=== PATIENT | male | born 1945 | race Caucasian/White ===

== ENCOUNTER 2016-09-20 11:07 | Inpatient (IN) | payer MEDICARE, OTHER ==
[~2016-09-20] VITALS: Ht 170.2 cm; Wt 161.5 kg
[2016-09-20] VITALS (8 sets, daily range): BP systolic 127–169; BP diastolic 65–87; PULSE 68–92; RESP 19–21; TEMP 96.3–97.7; O2SAT 94–99
[~2016-09-20 11:07] MED LIST: ALLO300T2 PO; ASPI81CH3; BUPR100CR PO; CENTTAB; CHLO50TA PO; CHOL1CAP6; CRAN500C2; DIAZ10 PO; FENT100D T-DERMAL; FISH100020 PO; FURO1TAB60 PO; LOMO5S PO; METO50CR PO; MOBI15TA PO; MSIR15 PO; NEUR800T PO; OXYC1TAB35 PO; SERT-129 PO; TAMS0.4C4; TROS20TA PO
[2016-09-20] MEDS ORDERED: SODIUM CHLOR 0.9% 1000 ML INJ 1,000 ML IV SCH (11:23)
[2016-09-20 11:36] LABS: AUTOMATED NEUTROPHIL # 4.8 TH/MM3 (1.8-7.7); BASOPHIL % 0.5 % (0.0-2.0); EOSINOPHIL # 0.1 TH/MM3 (0-0.4); HEMATOCRIT 41.8 % (39.0-51.0); HEMO FLAGS DIFF FINAL; LYMPH % 15.6 % (9.0-44.0); MEAN CORPUSCULAR HEMOGLOBIN 30.6 PG (27.0-34.0); MEAN CORPUSCULAR HGB CONC 34.4 % (32.0-36.0); MONO % 9.9 % (0.0-8.0); PLATELET COUNT 214 TH/MM3 (150-450); RED CELL DISTRIBUTION WIDTH 14.5 % (11.6-17.2); WHITE BLOOD COUNT 6.6 TH/MM3 (4.0-11.0)
[2016-09-20] MEDS ORDERED: VITA10003 PO (11:36)
[2016-09-20] MEDS ORDERED: CHLO25TA2 PO (11:36)
[2016-09-20] MEDS ORDERED: SERT-129 PO (11:36)
[2016-09-20] MEDS ORDERED: MORP1TAB26 PO (11:36)
[2016-09-20] MEDS ORDERED: METO25TA6 PO (11:36)
[2016-09-20] MEDS ORDERED: MIRA50TA PO (11:36)
[2016-09-20] MEDS ORDERED: TAMS0.4C4 PO (11:36)
[2016-09-20] MEDS ORDERED: FISH1000 (11:36)
[2016-09-20] MEDS ORDERED: BUPR100T4 PO (11:36)
[2016-09-20] MEDS ORDERED: MULT-125 PO (11:36)
[2016-09-20] MEDS ORDERED: LOMO2.5T PO (11:36)
[2016-09-20] MEDS ORDERED: GABA300C5 PO (11:36)
[2016-09-20] MEDS ORDERED: HYDR-3580 PO (11:36)
[2016-09-20] MEDS ORDERED: ASPI1TAB69 PO (11:36)
[2016-09-20] MEDS ORDERED: CRAN500C2 (11:36)
[2016-09-20] MEDS ORDERED: DIAZ5TAB PO (11:36)
[2016-09-20] MEDS ORDERED: ALLO300T2 PO (11:36)
--- NOTE | 2016-09-20 11:40 | PD ---
HPI Chief Complaint: General Weakness Time Seen by Provider: 11:34 Travel History International Travel<30 days: No Contact w/Intl Traveler<30days: No Traveled to known affect area: No History of Present Illness HPI 70-year-old male that presents to the ED for evaluation of generalized weakness and loss of bowel movement as well as bladder control the past 2 days. The patient has a history of prostate cancer many years ago as well as a history of a pinched nerve which causes pain to both legs. Per patient he is usually able to ambulate. Per patient for the past 2 days he has not been able to because he has weakness on both legs. He states that he lost his bowel movement and urine control about 2 days ago and he just goes without even knowing. Per patient he stools have been liquidy and black. He denies any chest pain or shortness of breath. He denies taking any blood thinners. He states that overall he feels dehydrated and weak. He denies any sick contacts. He denies ever having anything like this before. In any back injuries recently. No recent falls. Patient does complain of bilateral leg pain that again he attributes to his "pinched nerve". Denies any blood in the stool. States having some chills but no fevers. No abdominal pain. No chest pain or shortness of breath. Allergy to contrast media and Neosporin. PFSH Past Medical History Cancer: Yes (PROSTATE, LYMPHOMA) Diminished Hearing: No Genitourinary: Yes (CHRONIC UTI'S) Kidney Stones: Yes Radiation Therapy: Yes (2007) Tetanus Vaccination: < 5 Years ?: Not Past Surgical History Other Surgery: Yes (hernia repair, vein ligations) Social History Alcohol Use: No Tobacco Use: No Substance Use: No Allergies-Medications (Allergen,Severity, Reaction): Coded Allergies: Contrast Media (Verified Allergy, Severe, 09/20/16) Renal failure Neosporin (Verified Allergy, Unknown, rash, 09/20/16) Reported Meds & Prescriptions Reported Meds & Active Scripts Active Reported Metoprolol Succinate ER 24 HR (Metoprolol Succinate) 25 Mg Tab 25 Mg PO DAILY Diazepam 5 Mg Tab 5 Mg PO HS Hydrocodone-Acetaminophen 7.5-325 mg Tab 1 Tab PO Q8HR PRN Morphine ER (Morphine Sulfate) 60 Mg Tab 60 Mg PO BID Fish Oil (Bowlus-3 Fatty Acids) 1,000 Mg Cap Aspirin 81 Mg Tabdr 81 Mg PO DAILY Vitamin D-3 (Cholecalciferol) 1,000 Unit Tab 1,000 Units PO DAILY Cranberry (Cranberry (Vaccinium Macrocarpon)) 500 Mg Cap Centrum Men (Multiple Vitamins-Minerals) 1 Tab Tab 1 Tab PO DAILY Lomotil (Diphenoxylate-Atropine) 2.5-0.025 Mg Tab 1 Tab PO Q6H PRN Gabapentin 300 Mg Cap 300 Mg PO TID Myrbetriq (Mirabegron) 50 Mg Tab 50 Mg PO DAILY Tamsulosin (Tamsulosin HCl) 0.4 Mg Cap 0.4 Mg PO HS Allopurinol 300 Mg Tab 300 Mg PO DAILY Chlorthalidone 25 Mg Tab 25 Mg PO BID Sertraline (Sertraline HCl) 100 Mg Tab 100 Mg PO DAILY Bupropion HCl 100 Mg Tab 100 Mg PO BID Valium (Diazepam) 10 Mg Tab 10 Mg PO HS PRN Fentanyl Patch 72 HR (Fentanyl) 100 Mcg/Hr Patch 100 Mcg T-DERMAL Q72H Remove old patch when new one placed. Review of Systems General / Constitutional: Positive: Chills, No: Fever, Weight Gain, Weight Loss, Other Eyes: No: Diploplia, Blurred Vision, Photophobia, Drainage, Redness, Foreign Body Sensation, Pain, Tearing, Blind Spots, Visual changes, Blindness, Other HENT: No: Headaches, Vertigo, Lightheadedness, Sore Throat, Rhinitis, Rhinorrhea, Congestion, Nosebleed, Neck Stiffness, Neck Pain, Masses, Gingival Bleeding, Dental Difficulties, Ear Discharge, Earache, Other Cardiovascular: No: Chest Pain or Discomfort, Palpitations, Irregular Rhythm, Tachycardia, Diaphoresis, Syncope, Dyspnea on exertion, Varicosities, Edema, Cyanosis, Varicosities, Phlebitis, Claudication, Other Respiratory: No: Cough, Shortness of Breath, Wheezing, Sneezing, Orthopnea, Hemoptysis, Stridor, Night Sweats, Pleuritic Pain, Other Gastrointestinal: Positive: Changes in Bowel Habits, No: Nausea, Vomiting, Diarrhea, Abdominal Pain, Hematemesis, Hematochezia, Constipation, Indigestion, Dysphagia, Loss of Appetite, Other Genitourinary: Positive: Incontinence, No: Urgency, Frequency, Dysuria, Nocturia, Hematuria, Decreased Urinary Output, Oliguria, Hesitancy, Dribbling, Pelvic Pain, Flank Pain, Dyspareunia, Discharge, Dysmenorrhea, Menorrhagia, Metorrhagia, Vaginal Bleeding, Other Musculoskeletal: Positive: Weakness, Cramping, Edema, Pain, No: Myalgias, Arthralgias, Limited ROM, Atrophy, Other Skin: No Rash, No Itching, No Dryness, No Lumps, No Hives, No Change in Pigmentation, No Change in nails, No Alopecia, No Lesions, No Breast Lumps, No Breast Tenderness, No Breast Swelling, No Other Neurologic: Positive: Weakness, Paresthesia, Incontinence, No: Dizziness, Syncope, Focal Abnormalities, Coordination Problem, Tremor, Ataxia, Headache, Change in Mentation, Slurred Speech, Seizures, Sensory Disturbance, Other Psychiatric: No: Anxiety, Depression, Suicidal Ideations, Disorder of Thought, Mood Disorder, Substance Abuse, Homicidal Ideation, Other Endocrine: No: Heat Intolerance, Cold Intolerance, Polyuria, Polydipsia, Other Hematologic/Lymphatic: No: Easy Bruising, Lymph Node Enlargement, Other Physical Exam Narrative GENERAL: SKIN: Warm and dry. HEAD: Atraumatic. Normocephalic. EYES: Pupils equal and round 4mm reactive to light and accomodation. No scleral icterus. No injection or drainage. ENT: No nasal bleeding or discharge. Mucous membranes pink and moist. Tongue is midline. No uvula deviation. NECK: Trachea midline. No JVD. CARDIOVASCULAR: Regular rate and rhythm. no obvious Murmurs, S3, S4. RESPIRATORY: No accessory muscle use. Clear to auscultation. Breath sounds equal bilaterally. GASTROINTESTINAL: Abdomen soft, non-tender, nondistended. Hepatic and splenic margins not palpable. Rectal exam revealed decreased rectal tone as well as Hemoccult negative. This was done with female nurse present. MUSCULOSKELETAL: Extremities without clubbing, cyanosis, or edema. No obvious deformities. Full range of motion of the upper and lower extremities bilaterally. 2+ pulses bilaterally. NEUROLOGICAL: Awake and alert. No obvious cranial nerve deficits. Motor grossly within normal limits. Five out of 5 muscle strength in the arms and legs. Normal speech. Patient does have some weakness noted on the lower extremities compared to the upper extremities. Gait cannot be assessed. Patient does have decreased rectal tone. PSYCHIATRIC: Appropriate mood and affect; insight and judgment normal. Data Data Last Documented VS Vital Signs Date Time Temp Pulse Resp B/P Pulse Ox O2 Delivery O2 Flow Rate FiO2 09/20/16 13:30 78 19 143/65 96 Room Air 09/20/16 11:08 97.7 Orders Complete Blood Count With Diff (09/20/16 11:20) Comprehensive Metabolic Panel (09/20/16 11:20) Prothrombin Time / Inr (Pt) (09/20/16 11:20) Act Partial Throm Time (Ptt) (09/20/16 11:20) Lipase (09/20/16 11:20) Urinalysis - C+S If Indicated (09/20/16 11:20) Thyroid Stimulating Hormone (09/20/16 11:20) Chest, Single Ap (09/20/16 11:20) Iv Access Insert/Monitor (09/20/16 11:20) Ecg Monitoring (09/20/16 11:20) Oximetry (09/20/16 11:20) Mri L Spine W/O Contrast (09/20/16 ) Cath For Specimen (09/20/16 11:22) Sodium Chlor 0.9% 1000 Ml Inj (Ns 1000 M (09/20/16 11:23) Knee, Ltd (1 Or 2vws) (09/20/16 ) Electrocardiogram (09/20/16 11:30) Ckmb (Isoenzyme) Profile (09/20/16 11:30) Troponin I (09/20/16 11:30) Blood Culture (09/20/16 11:30) Lactic Acid (09/20/16 11:30) Lorazepam Inj (Ativan Inj) (09/20/16 12:15) Lorazepam Inj (Ativan Inj) (09/20/16 12:15) CKMB (09/20/16 11:12) CKMB% (09/20/16 11:12) Potassium Chloride (Kcl) (09/20/16 12:15) Consult Neurosurgery (09/20/16 ) Admit Order (Ed Use Only) (09/20/16 14:30) Labs Laboratory Tests Test 09/20/16 09/20/16 11:12 11:35 White Blood Count 6.6 TH/MM3 Red Blood Count 4.70 MIL/MM3 Hemoglobin 14.4 GM/DL Hematocrit 41.8 % Mean Corpuscular Volume 89.0 FL Mean Corpuscular Hemoglobin 30.6 PG Mean Corpuscular Hemoglobin 34.4 % Concent Red Cell Distribution Width 14.5 % Platelet Count 214 TH/MM3 Mean Platelet Volume 7.5 FL Neutrophils (%) (Auto) 73.0 % Lymphocytes (%) (Auto) 15.6 % Monocytes (%) (Auto) 9.9 % Eosinophils (%) (Auto) 1.0 % Basophils (%) (Auto) 0.5 % Neutrophils # (Auto) 4.8 TH/MM3 Lymphocytes # (Auto) 1.0 TH/MM3 Monocytes # (Auto) 0.7 TH/MM3 Eosinophils # (Auto) 0.1 TH/MM3 Basophils # (Auto) 0.0 TH/MM3 CBC Comment DIFF FINAL Differential Comment Prothrombin Time 12.5 SEC Prothromb Time International 1.1 RATIO Ratio Activated Partial 27.4 SEC Thromboplast Time Sodium Level 137 MEQ/L Potassium Level 3.1 MEQ/L Chloride Level 96 MEQ/L Carbon Dioxide Level 29.5 MEQ/L Anion Gap 12 MEQ/L Blood Urea Nitrogen 12 MG/DL Creatinine 0.87 MG/DL Estimat Glomerular Filtration 86 ML/MIN Rate Random Glucose 111 MG/DL Calcium Level 8.8 MG/DL Total Bilirubin 0.8 MG/DL Aspartate Amino Transf 41 U/L (AST/SGOT) Alanine Aminotransferase 59 U/L (ALT/SGPT) Alkaline Phosphatase 54 U/L Total Creatine Kinase 238 U/L Creatine Kinase MB 4.0 NG/ML Troponin I LESS THAN 0.02 NG/ML Total Protein 6.7 GM/DL Albumin 3.0 GM/DL Lipase 82 U/L Thyroid Stimulating Hormone 0.588 uIU/ML 3rd Gen Urine Color YELLOW Urine Turbidity CLEAR Urine pH 8.0 Urine Specific [place] 1.009 Urine Protein NEG mg/dL Urine Glucose (UA) NEG mg/dL Urine Ketones 10 mg/dL Urine Occult Blood NEG Urine Nitrite NEG Urine Bilirubin NEG Urine Urobilinogen 2.0 MG/DL Urine Leukocyte Esterase NEG Urine RBC 1 /hpf Urine WBC 4 /hpf Urine Squamous Epithelial <1 /hpf Cells Urine Mucus FEW /lpf Microscopic Urinalysis Comment CULT NOT INDICATED Lactic Acid Level 1.3 mmol/L MDM Medical Decision Making Medical Screen Exam Complete: Yes Emergency Medical Condition: Yes Medical Record Reviewed: Yes Interpretation(s) CBC & BMP Diagram 09/20/16 11:12 troponin and CKMB negative LFTs within normal limits. Coags within normal limits. Urine negative. Chest x-ray showed possible pleural effusion on the left side. MRI of the lumbar spine showed narrowing of the thecal psych at all this levels. Some of this might be secondary to some degree of short pedicles leaving the patient at increased risk for stenosis. Per his mother stenosis at the T12-L1, L1-L2, L2-L3, and L3 and L4 levels and more mild narrowing at the L4 -L5 as well as the L5 and S1 levels. Hypertrophy at multiple levels. This does contribute to left neural foraminal narrowing at the L3 and L4 level and right neural foramina narrowing at the L4-L5 levels and bilateral at the L5-S1 levels Differential Diagnosis Generalized weakness versus cauda equina versus herniated disc versus sepsis versus UTI versus diarrhea versus incontinence versus pneumonia versus electrolyte abnormality versus ACS Narrative Course 70-year-old male that presents to the ED for evaluation of generalized weakness and an incontinence. Patient was properly examined and was found to have signs and symptoms concerning for cauda equina as well as possible sepsis. My attending Dr. Wall evaluated the patient with me and agrees with plan. Labs and imaging were ordered. Patient was started IV fluids. Labs and imaging showed moderate stenosis of the lumbar spine. Case was discussed with my attending who recommends admission to medicine with neurosurgery consult. I spoke with Dr. Sena over the phone who agrees with admission. Dr sanchez was paged but he did not answer back after two hours. spoke to my attending on regards to this and she recommends formal consult inpatient. Diagnosis Primary Impression: Lumbar spinal stenosis Additional Impressions: Incontinence of bowel Qualified Code: R15.9 - Incontinence of feces, unspecified fecal incontinence type Weakness of both legs Admitting Information Admitting Physician Requests: Admit Nilesh Parada Sep 20, 2016 11:40 troponin and CKMB negative LFTs within normal limits. Coags within normal limits. Urine negative. Chest x-ray showed possible pleural effusion on the left side. MRI of the lumbar spine showed narrowing of the thecal psych at all this levels. Some of this might be secondary to some degree of short pedicles leaving the patient at increased risk for stenosis. Per his mother stenosis at the T12-L1, L1-L2, L2-L3, and L3 and L4 levels and more mild narrowing at the L4 -L5 as well as the L5 and S1 levels. Hypertrophy at multiple levels. This does contribute to left neural foraminal narrowing at the L3 and L4 level and right neural foramina narrowing at the L4-L5 levels and bilateral at the L5-S1 levels Differential Diagnosis Generalized weakness versus cauda equina versus herniated disc versus sepsis versus UTI versus diarrhea versus incontinence versus pneumonia versus electrolyte abnormality versus ACS Narrative Course 70-year-old male that presents to the ED for evaluation of generalized weakness and an incontinence. Patient was properly examined and was found to have signs and symptoms concerning for cauda equina as well as possible sepsis. My attending Dr. Wall evaluated the patient with me and agrees with plan. Labs and imaging were ordered. Patient was started IV fluids. Labs and imaging showed moderate stenosis of the lumbar spine. Case was discussed with my attending who recommends admission to medicine with neurosurgery consult. I spoke with Dr. Lepe over the phone who agrees with admission. Dr. Sanchez recommends Diagnosis Primary Impression: Lumbar spinal stenosis Additional Impressions: Incontinence of bowel Qualified Code: R15.9 - Incontinence of feces, unspecified fecal incontinence type Weakness of both legs Admitting Information Admitting Physician Requests: Admit Nilesh Parada Sep 20, 2016 11:40
[2016-09-20 11:42] LABS: APTT (PATIENT) 27.4 SEC (24.3-30.1); INTERNATIONAL NORMALIZED RATIO 1.1 RATIO; PROTHROMBIN TIME - PATIENT 12.5 SEC (9.8-11.6)
[2016-09-20 11:47] LABS: ANION GAP 12 MEQ/L (5-15); AST (GOT) 41 U/L (15-37); BICARBONATE 29.5 MEQ/L (21.0-32.0); BLOOD UREA NITROGEN 12 MG/DL (7-18); CHLORIDE 96 MEQ/L (98-107); GLOMERULAR FILTRATION RATE 86 ML/MIN (>89); POTASSIUM 3.1 MEQ/L (3.5-5.1); SODIUM (NA) 137 MEQ/L (136-145)
[2016-09-20 11:55] LABS: BLOOD, URINE NEG (NEG); COMMENT (UR) CULT NOT INDICATED; CULTURE IF INDICATED CULT NOT INDICATED; GLUCOSE,URINE NEG (NEG); KETONE, URINE 10 mg/dL (NEG); MUCUS URINE FEW /lpf (OCC); NITRITE,URINE NEG (NEG); SQUAMOUS EPITHELIAL CELL URINE <1 /hpf (0-5); URINE COLOR YELLOW (YELLW/STRAW)
--- NOTE | 2016-09-20 11:55 | RADRPT ---
EXAM DATE/TIME: 09/20/2016 11:24 [facility] COMPARISON: No previous studies available for comparison. INDICATIONS : Syncope, Weakness, Short of Breath, Chest Discomfort. MEDICAL HISTORY : Carcinoma, prostate. Cardiovascular disease. Hypertension. SURGICAL HISTORY : None. ENCOUNTER: Initial ACUITY: 1 day PAIN SCORE: 2/10 LOCATION: Bilateral chest FINDINGS: The heart size is enlarged. The lungs are grossly clear. There is some elevation of the lateral left hemidiaphragm. A mild subpulmonic effusion cannot be excluded. CONCLUSION: 1. Cardiomegaly. 2. Elevation of the lateral left hemidiaphragm. Some degree of subpleural fluid/effusion cannot be ex cluded. Roque Machado MD on September 20, 2016 at 11:53 Board Certified Radiologist. This report was verified electronically.
[2016-09-20 11:57] LABS: ALKALINE PHOSPHATASE 54 U/L (45-117); ALT (GPT) 59 U/L (12-78); TOTAL BILIRUBIN ADULT 0.8 MG/DL (0.2-1.0)
[2016-09-20 12:06] LABS: CREATINE KINASE 238 U/L (39-308)
[2016-09-20] MEDS ORDERED: POTASSIUM CHLORIDE 20 MEQ CONTROLLED RELEASE TAB PO ONE (12:15)
[2016-09-20] MEDS ORDERED: LORazepam 2 MG/ML VIAL IV PUSH ONE ×2 (12:15)
--- NOTE | 2016-09-20 12:28 | RADRPT ---
EXAM DATE/TIME: 09/20/2016 12:01 [facility] COMPARISON: No previous studies available for comparison. INDICATIONS : Left Knee pain after fall. MEDICAL HISTORY : Carcinoma, prostate. Cardiovascular disease. Hypertension. SURGICAL HISTORY : Total knee replacement, left. ENCOUNTER: Initial ACUITY: 1 day PAIN SCORE: 5/10 LOCATION: Left Knee. FINDINGS: There is total knee prosthesis in place. The prosthetic components appear well-placed. An acute fract ure is not seen. There is hypertrophic change seen around the patella. No effusion is seen. CONCLUSION: No acute disease. Roque Machado MD on September 20, 2016 at 12:24 Board Certified Radiologist. This report was verified electronically.
--- NOTE | 2016-09-20 14:11 | RADRPT ---
EXAM DATE/TIME: 09/20/2016 12:28 [facility] COMPARISON: No previous studies available for comparison. INDICATIONS: Loss of bowel and bladder control. MEDICAL HISTORY: Renal insufficiency, chronic. Carcinoma, prostate. Steroid injections, low back SURGICAL HISTORY: Inguinal hernia repair. Bilateral hip replacement, Right knee replacement. ENCOUNTER: Initial ACUITY: 1 day PAIN SCORE: 4/10 LOCATION: Paraspinal TECHNIQUE: Multiplanar multisequence MRI of the lumbar spine was performed without contrast. FINDINGS: The most caudal appearing lumbar vertebra is numbered as L5. VERTEBRAE: Homogeneous signal. Normal alignment. CONUS: Normal level and configuration. T12-L1: Disc space demonstrates mild decreased height. There is mild diffuse disc bulge. There is mild face t hypertrophy. These changes lead to moderate narrowing of the thecal sac with very little CSF seen around the conus at this level. The neural foramina are grossly intact. L1-L2: The disc demonstrates decreased height. There is mild diffuse disc bulge, there is mild facet and li gamentum flavum hypertrophy. These changes lead to moderate narrowing of the thecal sac with very li ttle CSF seen around the conus and nerve roots at this level. The neural foramina are grossly patent . L2-L3: Disc space is narrowed. The disc demonstrates increased signal centrally on the T2 weighted images. No significant impression on the thecal sac. There is mild bulging which causes some narrowing of t he neural foramina. There is moderate facet and ligamentum flavum hypertrophy. There are minimal di sc changes and posterior element changes lead to moderate narrowing of thecal sac. L3-L4: Disc demonstrates mild loss of height and mild bulging being asymmetric and worse on the left. There is moderate to severe facet hypertrophy. These changes lead to moderate narrowing of the thecal sac with very little CSF seen around the nerve roots. Individual nerve roots are not well characterize d. There is narrowing of the left neural foramina. The right neural foramina appears patent. L4-L5: There is fairly prominent narrowing of the disc space. There is mild disc bulge being asymmetric and worse on the right. There is severe right facet hypertrophy. There is more mild left facet hypertr ophy. There is narrowing of the right neural foramina. The left neural foramina appears patent. Th ere is a mild amount of CSF seen around the nerve roots. L5-S1: Disc space is narrowed, there is a mild impression on the anterior left side of thecal sac. There is moderate to severe facet hypertrophy. Overall the thecal sac is not significantly narrowed. There is some narrowing of the neural foramina bilaterally. CONCLUSION: 1. Narrowing of the thecal sac at all disc levels. Some of this may be secondary to some degree of short pedicles leaving the patient at increased risk for stenosis. There is moderate stenosis at t he T12-L1, L1-L2, L2-L3 and L3-L4 levels and more mild narrowing at the L4-L5 and L5-S1 levels. 2. Facet hypertrophy at multiple levels. This does contribute to left neural foramina narrowing at the L3-L4 level and right neural foramina narrowing at the L4-L5 levels and bilaterally at the L5-S1 levels. Roque Machado MD on September 20, 2016 at 13:13 Board Certified Radiologist. This report was verified electronically.
--- NOTE | 2016-09-20 14:15 | PD ---
Data Data Last Documented VS Vital Signs Date Time Temp Pulse Resp B/P Pulse Ox O2 Delivery O2 Flow Rate FiO2 09/20/16 13:30 78 19 143/65 96 Room Air 09/20/16 11:08 97.7 Orders Complete Blood Count With Diff (09/20/16 11:20) Comprehensive Metabolic Panel (09/20/16 11:20) Prothrombin Time / Inr (Pt) (09/20/16 11:20) Act Partial Throm Time (Ptt) (09/20/16 11:20) Lipase (09/20/16 11:20) Urinalysis - C+S If Indicated (09/20/16 11:20) Thyroid Stimulating Hormone (09/20/16 11:20) Chest, Single Ap (09/20/16 11:20) Iv Access Insert/Monitor (09/20/16 11:20) Ecg Monitoring (09/20/16 11:20) Oximetry (09/20/16 11:20) Mri L Spine W/O Contrast (09/20/16 ) Cath For Specimen (09/20/16 11:22) Sodium Chlor 0.9% 1000 Ml Inj (Ns 1000 M (09/20/16 11:23) Knee, Ltd (1 Or 2vws) (09/20/16 ) Electrocardiogram (09/20/16 11:30) Ckmb (Isoenzyme) Profile (09/20/16 11:30) Troponin I (09/20/16 11:30) Blood Culture (09/20/16 11:30) Lactic Acid (09/20/16 11:30) Lorazepam Inj (Ativan Inj) (09/20/16 12:15) Lorazepam Inj (Ativan Inj) (09/20/16 12:15) CKMB (09/20/16 11:12) CKMB% (09/20/16 11:12) Potassium Chloride (Kcl) (09/20/16 12:15) Labs Laboratory Tests Test 09/20/16 09/20/16 11:12 11:35 White Blood Count 6.6 TH/MM3 Red Blood Count 4.70 MIL/MM3 Hemoglobin 14.4 GM/DL Hematocrit 41.8 % Mean Corpuscular Volume 89.0 FL Mean Corpuscular Hemoglobin 30.6 PG Mean Corpuscular Hemoglobin 34.4 % Concent Red Cell Distribution Width 14.5 % Platelet Count 214 TH/MM3 Mean Platelet Volume 7.5 FL Neutrophils (%) (Auto) 73.0 % Lymphocytes (%) (Auto) 15.6 % Monocytes (%) (Auto) 9.9 % Eosinophils (%) (Auto) 1.0 % Basophils (%) (Auto) 0.5 % Neutrophils # (Auto) 4.8 TH/MM3 Lymphocytes # (Auto) 1.0 TH/MM3 Monocytes # (Auto) 0.7 TH/MM3 Eosinophils # (Auto) 0.1 TH/MM3 Basophils # (Auto) 0.0 TH/MM3 CBC Comment DIFF FINAL Differential Comment Prothrombin Time 12.5 SEC Prothromb Time International 1.1 RATIO Ratio Activated Partial 27.4 SEC Thromboplast Time Sodium Level 137 MEQ/L Potassium Level 3.1 MEQ/L Chloride Level 96 MEQ/L Carbon Dioxide Level 29.5 MEQ/L Anion Gap 12 MEQ/L Blood Urea Nitrogen 12 MG/DL Creatinine 0.87 MG/DL Estimat Glomerular Filtration 86 ML/MIN Rate Random Glucose 111 MG/DL Calcium Level 8.8 MG/DL Total Bilirubin 0.8 MG/DL Aspartate Amino Transf 41 U/L (AST/SGOT) Alanine Aminotransferase 59 U/L (ALT/SGPT) Alkaline Phosphatase 54 U/L Total Creatine Kinase 238 U/L Creatine Kinase MB 4.0 NG/ML Troponin I LESS THAN 0.02 NG/ML Total Protein 6.7 GM/DL Albumin 3.0 GM/DL Lipase 82 U/L Thyroid Stimulating Hormone 0.588 uIU/ML 3rd Gen Urine Color YELLOW Urine Turbidity CLEAR Urine pH 8.0 Urine Specific [place] 1.009 Urine Protein NEG mg/dL Urine Glucose (UA) NEG mg/dL Urine Ketones 10 mg/dL Urine Occult Blood NEG Urine Nitrite NEG Urine Bilirubin NEG Urine Urobilinogen 2.0 MG/DL Urine Leukocyte Esterase NEG Urine RBC 1 /hpf Urine WBC 4 /hpf Urine Squamous Epithelial <1 /hpf Cells Urine Mucus FEW /lpf Microscopic Urinalysis Comment CULT NOT INDICATED Lactic Acid Level 1.3 mmol/L MDM Supervised Visit with LEYDI: Yes Narrative Course I, Dr. Pereira, have reviewed the advance practice practioner's documentation and am in agreement, met with the patient face to face, made the diagnosis, and the medical decision making was done by me. *My assessment and Findings: 70-year-old male with history of chronic low back pain here with increasing pain in the low back radiating down the left leg, loss of bowel/bladder function. Patient states that he has had bad pain, burning and numbness in the left leg for the last 2 days. States that this feels similar to having a "pinched nerve" in his back previously but never to this severity. notes that patient has been incontinent of bowel and bladder function for the last 2 days. Patient states that he has the urge to go the bathroom but can't make it better, and has times where he doesn't know he is going on all this and he is incontinent. On exam patient has 4 out of 5 strength in the left lower extremity versus the right. Rectal examination has slightly decreased tone. Perineal sensation is intact. Patient's exam is somewhat limited due to his morbid obesity. Differential includes cauda equina syndrome, spinal stenosis, UTI, electrolyte abnormality, radiculopathy, sciatica. Symptoms are not consistent with stroke. Laboratory workup notable only for mild hypokalemia replaced. MRI of the lumbar spine shows significant chronic degenerative changes with stenosis and facet hypertrophy, neuroforaminal narrowing. Given patient's focal neuro exam findings neurosurgery will be consulted and patient will be admitted for pain management and neurosurgical evaluation. Joleen Pereira MD Sep 20, 2016 14:15
[2016-09-20] MEDS ORDERED: SODIUM CHLORIDE 0.9% FLUSH 5 ML FLUSH FLUSH PRN (14:45)
[2016-09-20] MEDS ORDERED: SENNOSIDES 8.6 MG TAB PO PRN (14:45)
[2016-09-20] MEDS ORDERED: ONDANSETRON HCL 4 MG/2 ML VIAL IVP PRN (14:45)
[2016-09-20] MEDS ORDERED: TEMAZEPAM 15 MG CAP PO PRN (14:45)
[2016-09-20] MEDS ORDERED: PROCHLORPERAZINE 25 MG SUPP PR PRN (14:45)
[2016-09-20] MEDS ORDERED: MAGNESIUM HYDROXIDE SUSP 30 ML CUP PO PRN (14:45)
[2016-09-20] MEDS ORDERED: BISACODYL 10 MG SUPP PR PRN (14:45)
[2016-09-20] MEDS ORDERED: DIAZEPAM 10 MG TAB PO PRN (14:45)
[2016-09-20] MEDS ORDERED: ACETAMINOPHEN 325 MG TAB PO PRN (14:45)
[2016-09-20] MEDS ORDERED: PILL SPLITTER OTHER PRN (15:00)
--- NOTE | 2016-09-20 15:07 | HHI.HP ---
[facility] Non-Staff Admission Diagnosis radiculopathy, lumbar spinal stenosis Diagnoses: Chief Complaint: weakness LE and incontinence bowel/bladded Travel History International Travel<30 Days: No Contact w/Intl Traveler <30 Da: No Traveled to Known Affected Are: No History of Present Illness Pleasant morbidly obese 70-year-old male with BMI of 44.9 and multiple medical problems that presents to the ED for evaluation of generalized weakness and loss of bowel movement as well as bladder control the past 2 days. The patient has a history of prostate cancer many years ago as well as a history of a pinched nerve which causes pain to both legs. Per patient he is usually able to ambulate with a walker. He says for the past 2 days he has not been able to because he has weakness on both legs. he also has pain in his left leg. He has chronic wounds of the lower legs and he follows with Dr Freitas, and wounds are healed now. He states that he lost his bowel movement and urine control about 2 days ago and he just goes without even knowing. Stools have been liquidy and black. He denies any chest pain or shortness of breath. No palpitations, diaphoresis. No nausea or vomiting. No feevr or chills. Denies abdominal pain. He denies taking any blood thinners. He states that overall he feels dehydrated and weak. He denies any sick contacts. He denies ever having anything like this before. Denies any back injuries recently. No recent falls. Patient does complain of bilateral leg pain that again he attributes to his "pinched nerve". Denies any blood in the stool. States having some chills but no fevers. No abdominal pain. Review of Systems Except as stated in HPI: all other systems reviewed are Neg 12 ROS reviewed and negative except as stated in HPI Past Family Social History Past Medical History Diabetes mellitus type 2 Morbid obesity BMI 44.9 Hyperlipidemia H/o Diffuse large B-cell lymphoma diagnosed 2007 in remission, H/o follicular lymphoma grade 3B Prostatic cancer. Biochemical relapse prostate cancer in 2016, following with Dr. Deveras as outpatient Nonhealing lower extremity ulcers, left leg in [address] Rowland podiatry Kidney stones 2008 Hemorrhoids Past Surgical History Cholecystectomy 2015 Hip surgery 2013 Right knee surgery 2007 Left knee surgery 2005 Port placement and removal in 2007 Allergies: Coded Allergies: Contrast Media (Verified Allergy, Severe, 09/20/16) Renal failure Neosporin (Verified Allergy, Unknown, rash, 09/20/16) Family History Stroke runs in family Fatehr had dementia, at the age of 95 Social History Used to smoke 3 PPD, quit 25 yrars ago No illicit drug use or EtOH use. Physical Exam Vital Signs Vital Signs Date Time Temp Pulse Resp B/P Pulse Ox O2 Delivery O2 Flow Rate FiO2 09/20/16 14:38 96 21 09/20/16 13:30 78 19 143/65 96 Room Air 09/20/16 12:16 68 21 169/87 96 Room Air 09/20/16 11:37 99 Room Air 09/20/16 11:14 83 20 100 Room Air 09/20/16 11:08 97.7 73 20 141/73 97 Physical Exam GENERAL: This is a pleasant morbidly obese 70 yo male, well-nourished, well- developed patient, in no apparent distress. SKIN: LE chronic venous stasis dermatitis. No ecchymoses or lesions. Cool and dry. HEAD: Atraumatic. Normocephalic. No temporal or scalp tenderness. EYES: Pupils equal round and reactive. Extraocular motions intact. No scleral icterus. No injection or drainage. ENT: Nose without bleeding, purulent drainage or septal hematoma. Throat without erythema, tonsillar hypertrophy or exudate. Uvula midline. Airway patent. NECK: Trachea midline. No JVD or lymphadenopathy. Supple, nontender, no meningeal signs. CARDIOVASCULAR: Regular rate and rhythm without murmurs, gallops, or rubs. RESPIRATORY: Clear to auscultation. Breath sounds equal bilaterally. No wheezes , rales, or rhonchi. GASTROINTESTINAL: Abdomen soft, obese, non-tender, nondistended. No hepato- splenomegaly, or palpable masses. No guarding. MUSCULOSKELETAL: Extremities without clubbing, cyanosis, or edema. No calf tenderness. Negative Homans sign bilaterally. NEUROLOGICAL: Awake and alert. Cranial nerves II through XII intact. Motor and sensory grossly within normal limits. Five out of 5 muscle strength in all muscle groups. Normal speech. Laboratory Laboratory Tests Test 09/20/16 09/20/16 11:12 11:35 White Blood Count 6.6 Red Blood Count 4.70 Hemoglobin 14.4 Hematocrit 41.8 Mean Corpuscular Volume 89.0 Mean Corpuscular Hemoglobin 30.6 Mean Corpuscular Hemoglobin 34.4 Concent Red Cell Distribution Width 14.5 Platelet Count 214 Mean Platelet Volume 7.5 Neutrophils (%) (Auto) 73.0 Lymphocytes (%) (Auto) 15.6 Monocytes (%) (Auto) 9.9 Eosinophils (%) (Auto) 1.0 Basophils (%) (Auto) 0.5 Neutrophils # (Auto) 4.8 Lymphocytes # (Auto) 1.0 Monocytes # (Auto) 0.7 Eosinophils # (Auto) 0.1 Basophils # (Auto) 0.0 CBC Comment DIFF FINAL Differential Comment Prothrombin Time 12.5 Prothromb Time International 1.1 Ratio Activated Partial 27.4 Thromboplast Time Sodium Level 137 Potassium Level 3.1 Chloride Level 96 Carbon Dioxide Level 29.5 Anion Gap 12 Blood Urea Nitrogen 12 Creatinine 0.87 Estimat Glomerular Filtration 86 Rate Random Glucose 111 Calcium Level 8.8 Total Bilirubin 0.8 Aspartate Amino Transf 41 (AST/SGOT) Alanine Aminotransferase 59 (ALT/SGPT) Alkaline Phosphatase 54 Total Creatine Kinase 238 Creatine Kinase MB 4.0 Troponin I LESS THAN 0.02 Total Protein 6.7 Albumin 3.0 Lipase 82 Thyroid Stimulating Hormone 0.588 3rd Gen Urine Color YELLOW Urine Turbidity CLEAR Urine pH 8.0 Urine Specific [place] 1.009 Urine Protein NEG Urine Glucose (UA) NEG Urine Ketones 10 Urine Occult Blood NEG Urine Nitrite NEG Urine Bilirubin NEG Urine Urobilinogen 2.0 Urine Leukocyte Esterase NEG Urine RBC 1 Urine WBC 4 Urine Squamous Epithelial <1 Cells Urine Mucus FEW Microscopic Urinalysis Comment CULT NOT INDICATED Lactic Acid Level 1.3 Date/Time Procedure Status Source Growth 09/20/16 11:35 Aerobic Blood Culture Received Blood Peripheral Pending 09/20/16 11:35 Anaerobic Blood Culture Received Blood Peripheral Pending Result Diagram: 09/20/16 1112 09/20/16 1112 Assessment and Plan Assessment and Plan 70-year-old male with multiple medical problems here for evaluation of bowel/ bladder incontinence and lower extremity weakness Bowel/bladder incontinence and lower extremity weakness, spinal stenosis/ radiculopathy MRI lumbar spine reviewed and findings discussed with ED physician/PA significant chronic degenerative changes with stenosis and facet hypertrophy, neuroforaminal narrowing. Consult neurosurgery Consider steroids IV if indication, neurosurgeon to evaluate Might consider neurology consultation as well Restart pain meds form home, add dilaudid for breakthrough pain Neuro checks Hypokalemia K 3.1. Replaced with 20 MEQ po in the ED. Monitor and replace as need. Morbid obesity BMI 44.9. Counselled. Hyperlipidemia. Restart home meds. H/o Diffuse large B-cell lymphoma diagnosed 2007 in remission, H/o follicular lymphoma grade 3B Prostatic cancer. Biochemical relapse prostate cancer in 2016, following with Dr. Serrano as outpatient. Nonhealing lower extremity ulcers, left leg in [address] Rowland podiatry. Appears stable. Consult Dr Rowland if need. DVt ppx SCD/TEDs Discussed Condition With Patient, nurse ED PA Nilesh Parada Physician Certification 2 Midnight Certification Type: Admission for Inpatient Services Order for Inpatient Services The services are ordered in accordance with Medicare regulations or non- Medicare payer requirements, as applicable. In the case of services not specified as inpatient-only, they are appropriately provided as inpatient services in accordance with the 2-midnight benchmark. Estimated LOS (days): 3 days is the estimated time the patient will need to remain in the hospital, assuming treatment plan goals are met and no additional complications. Post-Hospital Plan: Not yet determined Tawanna Sena MD Sep 20, 2016 15:07
[2016-09-20] MEDS ORDERED: GLUCAGON 1 MG/ML VIAL OTHER PRN (15:15)
[2016-09-20] MEDS ORDERED: DEXTROSE 50% IN WATER 50 ML VIAL(D50) IV PUSH PRN (15:15)
[2016-09-20] MEDS ORDERED: INSULIN ASPART SUPPLEMENTAL SCALE SQ SCH (16:00)
[2016-09-20] MEDS: GABAPENTIN 300 MG CAP PO SCH (17:20)
[2016-09-20] MEDS: fentaNYL 100 MCG/HR PATCH T-DERMAL SCH (17:20)
[2016-09-20] MEDS ORDERED: MYRBETRIQ 50 MG PO SCH (21:00)
[2016-09-20] MEDS: CHLORTHALIDONE 50 MG TAB PO SCH (21:51)
[2016-09-20] MEDS: buPROPion HCL 100 MG TAB PO SCH (21:51)
[2016-09-20] MEDS: DIAZEPAM 5 MG TAB PO SCH (21:51)
[2016-09-20] MEDS: TAMSULOSIN HCL 0.4 MG CAP PO SCH (21:51)
[2016-09-20] MEDS: SODIUM CHLORIDE 0.9% FLUSH 5 ML FLUSH FLUSH SCH (21:51)
[2016-09-20] MEDS: MORPHINE SULFATE 60 MG CONTROLLED RELEASE TAB PO SCH (21:52)
[2016-09-21] VITALS (8 sets, daily range): BP systolic 123–149; BP diastolic 73–94; PULSE 66–83; RESP 18–20; TEMP 97.2–98.8; O2SAT 95–98
[2016-09-21] MEDS: ACETAMINOPHEN/HYDROcodone 325 MG/7.5 MG TAB PO PRN ×3 (04:33→22:58)
[2016-09-21 07:02] LABS: AUTOMATED NEUTROPHIL # 4.5 TH/MM3 (1.8-7.7); BASOPHIL % 0.5 % (0.0-2.0); EOSINOPHIL # 0.1 TH/MM3 (0-0.4); EOSINOPHIL % 1.7 % (0.0-4.0); HEMO FLAGS DIFF FINAL; LYMPH % 15.9 % (9.0-44.0); MEAN CELL VOLUME 90.2 FL (80.0-100.0); MEAN CORPUSCULAR HEMOGLOBIN 30.2 PG (27.0-34.0); MEAN CORPUSCULAR HGB CONC 33.5 % (32.0-36.0); MONO % 10.7 % (0.0-8.0); NEUT % 71.2 % (16.0-70.0); PLATELET COUNT 206 TH/MM3 (150-450); RED BLOOD COUNT 4.55 MIL/MM3 (4.50-5.90); WHITE BLOOD COUNT 6.3 TH/MM3 (4.0-11.0)
[2016-09-21 07:27] LABS: BICARBONATE 30.3 MEQ/L (21.0-32.0); POTASSIUM 3.2 MEQ/L (3.5-5.1)
[2016-09-21] MEDS: CHLORTHALIDONE 50 MG TAB PO SCH ×2 (08:52→20:54)
[2016-09-21] MEDS: GABAPENTIN 300 MG CAP PO SCH ×3 (08:52→17:16)
[2016-09-21] MEDS: buPROPion HCL 100 MG TAB PO SCH ×2 (08:53→20:54)
[2016-09-21] MEDS: METOPROLOL SUCCINATE 25 MG EXTENDED RELEASE TAB PO SCH (08:53)
[2016-09-21] MEDS: MORPHINE SULFATE 60 MG CONTROLLED RELEASE TAB PO SCH ×2 (08:53→20:54)
[2016-09-21] MEDS: SERTRALINE HCL 100 MG TAB PO SCH (08:53)
[2016-09-21] MEDS: ALLOPURINOL 300 MG TAB PO SCH (08:53)
[2016-09-21] MEDS: CHOLECALCIFEROL (VIT D3) 1000 UNIT TAB PO SCH (08:53)
[2016-09-21] MEDS: SODIUM CHLORIDE 0.9% FLUSH 5 ML FLUSH FLUSH SCH ×2 (08:54→20:55)
[2016-09-21] MEDS: HYDROmorphone HCL PF 1 MG/ML VIAL IV PUSH PRN ×2 (08:57→17:59)
[2016-09-21] MEDS ORDERED: NON-FORMULARY DRUG (Mirabegron (Myrbetriq) 50 MG) PO SCH (09:00)
--- NOTE | 2016-09-21 12:48 | HHI.PR ---
Subjective Remarks Patient in bed. Says she was not able to do any PT, says he has a recliner bed at home. No nausea or vomiting Says urination is better. Says no more diarrhea. Still with weakness in LE and also still with back pain. Pain is controlled by meds. No fever or chills. Objective Vitals Vital Signs Date Time Temp Pulse Resp B/P Pulse Ox O2 Delivery O2 Flow Rate FiO2 09/21/16 08:49 98.0 76 19 138/80 95 09/21/16 04:00 97.2 83 18 127/73 97 09/21/16 00:00 97.2 83 20 123/74 95 09/20/16 20:00 97.5 90 20 127/76 94 09/20/16 20:00 97.5 92 20 127/76 94 09/20/16 16:51 96.3 80 20 143/66 98 09/20/16 16:16 70 19 138/68 95 09/20/16 14:38 96 21 09/20/16 13:30 78 19 143/65 96 Room Air I/O 09/20/16 09/20/16 09/20/16 09/21/16 09/21/16 09/21/16 07:00 15:00 23:00 07:00 15:00 23:00 Intake Total 360 ml Output Total 250 ml 800 ml Balance 110 ml -800 ml Intake Oral 360 ml Output Urine Total 250 ml 800 ml # Voids 2 7 # Bowel Movements 0 Result Diagram: 09/21/16 0623 09/21/1623 Objective Remarks GENERAL: This is a pleasant morbidly obese 70 yo male, well-nourished, well- developed patient, in no apparent distress. SKIN: LE chronic venous stasis dermatitis. No ecchymoses or lesions. Cool and dry. HEAD: Atraumatic. Normocephalic. No temporal or scalp tenderness. EYES: Pupils equal round and reactive. Extraocular motions intact. No scleral icterus. No injection or drainage. ENT: Nose without bleeding, purulent drainage or septal hematoma. Throat without erythema, tonsillar hypertrophy or exudate. Uvula midline. Airway patent. NECK: Trachea midline. No JVD or lymphadenopathy. Supple, nontender, no meningeal signs. CARDIOVASCULAR: Regular rate and rhythm without murmurs, gallops, or rubs. RESPIRATORY: Clear to auscultation. Breath sounds equal bilaterally. No wheezes , rales, or rhonchi. GASTROINTESTINAL: Abdomen soft, obese, non-tender, nondistended. No hepato- splenomegaly, or palpable masses. No guarding. MUSCULOSKELETAL: Extremities without clubbing, cyanosis, or edema. No calf tenderness. Negative Homans sign bilaterally. NEUROLOGICAL: Awake and alert. Cranial nerves II through XII grossly intact. Sensory grossly within normal limits. Upper extremity with normal strength. Lower extremities with weakness 4/5. Back pain. Normal speech. A/P Assessment and Plan 70-year-old male with multiple medical problems here for evaluation of bowel/ bladder incontinence and lower extremity weakness Bowel/bladder incontinence and lower extremity weakness, spinal stenosis/ radiculopathy MRI lumbar spine reviewed and findings discussed with ED physician/PA significant chronic degenerative changes with stenosis and facet hypertrophy, neuroforaminal narrowing. Consult neurosurgery Start decadron 4 mg IV q6 taper, neurosurgeon to evaluate patient Might consider neurology consultation as well Continue pain meds from home, added dilaudid for breakthrough pain Neuro checks Had a fall 3 weeks ago and complained of left knee pain. X ray without fracture. Hypokalemia. K 3.2. Give 60 mg PO KCL. Monitor and replace as need. Morbid obesity BMI 44.9. Counselled. Hyperlipidemia. Restart home meds. H/o Diffuse large B-cell lymphoma diagnosed 2007 in remission, H/o follicular lymphoma grade 3B Prostatic cancer. Biochemical relapse prostate cancer in 2016, following with Dr. Serrano as outpatient. Lower extremity ulcers, bilateral stasis dermatitis, following with Dr. Rowland podiatry. Appears stable. Consult Dr Rowland if need. DVt ppx SCD/TEDs Discussed Condition With Patient, nurse Tawanna Sena MD Sep 21, 2016 12:48
[2016-09-21] MEDS ORDERED: POTASSIUM CHLORIDE 10 MEQ CONTROLLED RELEASE TAB PO ONE (13:00)
[2016-09-21] MEDS: ENOXAPARIN SODIUM 30 MG/0.3 ML SYRINGE SQ SCH (14:15)
[2016-09-21] MEDS: DEXAMETHASONE SOD PHOS 4 MG/ML VIAL IV PUSH SCH ×2 (14:16→17:17)
--- NOTE | 2016-09-21 14:51 | EKG ---
Date Performed: 09/20/2016 Time Performed: 11:43:03 PTAGE: 70 years EKG: Sinus rhythm WITH FIRST DEGREE AV BLOCK LEFT ANTERIOR FASCICULAR BLOCK ANTEROLATERAL MYOCARDIAL INFARCTION ABNORM AL ECG NO PREVIOUS TRACING DOCTOR: Munira Kern Interpretating Date/Time 09/21/2016 14:48:45
--- NOTE | 2016-09-21 15:04 | MB ---
cc: MARCELO THOMASON M.D. DATE OF CONSULTATION: 09/21/2016 REASON FOR CONSULTATION Left thigh pain. HISTORY OF PRESENT ILLNESS This is a 70-year-old morbidly obese gentleman with a chronic history of low back pain, in particular radiating into the left anterior thigh. He states usually he gets an exacerbation once a week which could last several days or so and presented to the emergency room with similar complaints on 09/20/2016. He also has a chronic history of urinary urgency and states he was diagnosed with prostate cancer years ago and had treatment. He is followed by Dr. Daniels from urology for his urinary frequency and at times incontinence which has worsened and Dr. Daniels is planning on doing a Botox injection under general anesthesia to help with these urinary issues. He does not relate any bowel incontinence to me but apparently did this to the emergency room physician. He denies any numbness in the lower extremities or peroneal area. Denies any right lower extremity symptoms. He ambulates with a walker, although states that he has had chronic shoulder injuries and pain bilaterally and was informed that he needed right reverse shoulder replacement, but he decided not to follow through with that. The patient also relates that [place] and was informed that he had some pinched nerves and degenerate changes and stenosis but was not a surgical candidate, particularly given his morbid obesity. He states he got a second opinion from orthopedic spine surgery, [facility] and was also informed he is not a surgical candidate for his lumbar spine. He relates that he has had his left hip evaluated and was informed it did not need surgery and he does have a history of right hip replacement. MRI scan of the lumbar spine from 09/20/2016 is reviewed and shows moderate spinal stenosis from T12 to L4 and mild from L4 to S1 levels with facet arthropathy and degenerate changes. He is followed by Dr. Lopez for pain management who prescribes his pain medications, which he states is requiring higher narcotic doses, in particular morphine but these are not working for him. He also periodically gets epidural steroid and facet rhizotomies in the lumbar spine which provide him with temporary short-term relief at times and other times they do not work. PAST MEDICAL HISTORY 1. Morbid obesity. 2. Prostate cancer with progressive urinary urgency and incontinence. 3. His history of present illness relates to diabetes mellitus but he denies this. 4. Hyperlipidemia. 5. History of large B-cell lymphoma and follicular lymphoma. 6. Kidney stones. 7. Lower extremity ulcers from edema followed by podiatry and wound care. 8. Hemorrhoids. 9. Cholecystectomy. 10. Right hip replacement. 11. Bilateral knee replacements. 12. [id number]-[id number] placement and removal into 2007. MEDICATIONS 1. Allopurinol. 2. Aspirin. 3. Bupropion. 4. Chlorthalidone. 5. Vitamin D. 6. Cranberry. 7. Diazepam. 8. Lomotil. 9. Fentanyl patch 100 mcg 72 hours. 10. Gabapentin 300 mg t.i.d. 11. Lortab 7.5/325 one q.8 hours p.r.n. 12. Metoprolol. 13. Myrbetriq. 14. Morphine 60 mg b.i.d. 15. Multivitamins. 16. Fish oil. 17. Sertraline. 18. Flomax. ALLERGIES CONTRAST MEDIA AND NEOSPORIN. SOCIAL HISTORY He is a former smoker. Denies alcohol use. He is . LABORATORY FINDINGS White blood cell count 6.3, hemoglobin 13.7, platelet count 206, PT 12.5, INR 1.1, PTT 27.4, sodium 135, potassium 3.2, BUN 14, creatinine 0.79, glucose 103. REVIEW OF SYSTEMS Pertinent positives as mentioned in history of present illness, otherwise negative. PHYSICAL EXAMINATION VITAL SIGNS: Temperature 97.8, pulse 75, respiratory rate 18, blood pressure 149/94, oxygen saturation 98% on room air. HEAD: Normocephalic, atraumatic. NECK: Neck is supple. CHEST: Clear to auscultation bilaterally. HEART: Regular rate and rhythm, normal S1, S2. ABDOMEN: Soft, nontender. He is very obese. EXTREMITIES: Mild edema on the legs, venostasis ulcers are healing well on the lower extremities distally. NEUROLOGIC: He is awake, alert. Cranial nerves are intact. He is missing teeth and [id number]. Motor strength in the upper extremity is 5/5, the right lower extremity is 5/5, the left lower extremity distally is 5/5 more proximally in the iliopsoas and quadriceps, limited because of pain but he is able to lift the leg and straighten his knee and walk a few steps with a walker. Denies any numbness to light touch sensation of lower extremities. He is voiding with a urinal. IMPRESSION Chronic low back pain with a left L2 and L3 radiculopathy. He does have moderate multilevel lumbar stenosis along with degenerate changes and recent exacerbation of his left thigh pain. He has opiate dependency / tolerance and is undergoing outpatient pain management and followed by Dr. Lopez. He has been informed by two spine surgeons that he is not a surgical candidate for his lumbar spine due to his obesity and likelihood of not healing well. PLAN I agree with the previous two spinal surgeons that he is not a candidate for surgical intervention regarding his lumbar spine. I would recommend pain management and rehabilitation. If his incontinence remains an issue, then would recommend urology followup. I also discussed the option of spinal epidural stimulator and that if he wants to proceed with this then he can follow up with his pain specialist who can undertake that. MD DANYA Rodriguez/BELL /12:51 PM /1:30 PM
[2016-09-21] MEDS: TAMSULOSIN HCL 0.4 MG CAP PO SCH (20:53)
[2016-09-21] MEDS: DIAZEPAM 5 MG TAB PO SCH (20:53)
[2016-09-22] VITALS (7 sets, daily range): BP systolic 116–153; BP diastolic 69–93; PULSE 61–98; RESP 19–24; TEMP 96.5–97.9; O2SAT 93–98
[2016-09-22] MEDS: ENOXAPARIN SODIUM 30 MG/0.3 ML SYRINGE SQ SCH ×2 (02:22→15:30)
[2016-09-22] MEDS: ACETAMINOPHEN/HYDROcodone 325 MG/7.5 MG TAB PO PRN ×3 (07:18→23:31)
[2016-09-22] MEDS: METOPROLOL SUCCINATE 25 MG EXTENDED RELEASE TAB PO SCH (08:18)
[2016-09-22] MEDS: buPROPion HCL 100 MG TAB PO SCH ×2 (08:19→21:21)
[2016-09-22] MEDS: CHLORTHALIDONE 50 MG TAB PO SCH ×2 (08:19→21:22)
[2016-09-22] MEDS: CHOLECALCIFEROL (VIT D3) 1000 UNIT TAB PO SCH (08:19)
[2016-09-22] MEDS: GABAPENTIN 300 MG CAP PO SCH ×3 (08:19→17:43)
[2016-09-22] MEDS: SERTRALINE HCL 100 MG TAB PO SCH (08:19)
[2016-09-22] MEDS: ALLOPURINOL 300 MG TAB PO SCH (08:19)
[2016-09-22] MEDS: MORPHINE SULFATE 60 MG CONTROLLED RELEASE TAB PO SCH ×2 (08:20→21:21)
[2016-09-22] MEDS: SODIUM CHLORIDE 0.9% FLUSH 5 ML FLUSH FLUSH SCH ×2 (08:21→21:24)
[2016-09-22] MEDS: DIPHENOXYLATE/ATROPINE 2.5 MG/0.025 MG TAB PO PRN ×3 (09:19→21:26)
[2016-09-22] MEDS ORDERED: DIAZ10 PO (12:33)
[2016-09-22] MEDS ORDERED: MORP1TAB26 PO (12:33)
[2016-09-22] MEDS ORDERED: DIAZ5TAB PO (12:33)
[2016-09-22] MEDS ORDERED: FENT100D T-DERMAL (12:33)
[2016-09-22] MEDS ORDERED: HYDR-3580 PO (12:33)
--- NOTE | 2016-09-22 12:33 | HHI.DCPOC ---
Discharge Care Plan Goals to Promote Your Health * To prevent worsening of your condition and complications * To maintain your health at the optimal level Directions to Meet Your Goals Take your medications as prescribed Follow your dietary instruction Follow activity as directed Keep your appointments as scheduled Take your immunizations and boosters as scheduled If your symptoms worsen call your PCP, if no PCP go to Urgent Care Center or Emergency Room Smoking is Dangerous to Your Health. Avoid second hand smoke Call the 24-hour hour crisis hotline for domestic abuse at Tawanna Sena MD Sep 22, 2016 12:33
[2016-09-22] MEDS: HYDROmorphone HCL PF 1 MG/ML VIAL IV PUSH PRN (13:16)
--- NOTE | 2016-09-22 18:26 | HHI.PR ---
Subjective Remarks Seen earlier today. Patient says he had diarrhea in the morning. He also has urinary incontinence . No fever or chills. No n/v/d/c. Follows with Dr Phillips as OP. Patient was cleared for DC by neurosurgery to follow up as OP with PCP and consultants. Objective Vitals Vital Signs Date Time Temp Pulse Resp B/P Pulse Ox O2 Delivery O2 Flow Rate FiO2 09/22/16 16:35 96.5 74 20 137/93 96 09/22/16 12:39 97.2 61 19 116/69 98 09/22/16 08:32 97.8 68 21 142/90 93 09/22/16 04:00 97.9 63 20 153/79 96 09/22/16 00:00 97.9 98 22 134/74 93 09/21/16 20:32 95 21 09/21/16 20:18 98.8 66 18 136/82 95 I/O 09/21/16 09/21/16 09/21/16 09/22/16 09/22/16 09/22/16 06:59 14:59 22:59 06:59 14:59 22:59 Intake Total 360 ml 480 ml Output Total 250 ml 800 ml 600 ml 725 ml 300 ml Balance 110 ml -800 ml 480 ml -600 ml -725 ml -300 ml Intake Oral 360 ml 480 ml Output Urine Total 250 ml 800 ml 600 ml 725 ml 300 ml # Voids 7 Result Diagram: 09/21/16 0623 09/21/16 0623 Imaging Last Impressions Chest X-Ray 09/20/16 1120 Signed Impressions: Service Date/Time: Tuesday, September 20, 2016 11:24 - CONCLUSION: 1. Cardiomegaly. 2. Elevation of the lateral left hemidiaphragm. Some degree of subpleural fluid/effusion cannot be excluded. Roque Machado MD Lumbar Spine MRI 09/20/16 0000 Signed Impressions: Service Date/Time: Tuesday, September 20, 2016 12:28 - CONCLUSION: 1. Narrowing of the thecal sac at all disc levels. Some of this may be secondary to some degree of short pedicles leaving the patient at increased risk for stenosis. There is moderate stenosis at the T12-L1, L1-L2, L2-L3 and L3-L4 levels and more mild narrowing at the L4-L5 and L5-S1 levels. 2. Facet hypertrophy at multiple levels. This does contribute to left neural foramina narrowing at the L3-L4 level and right neural foramina narrowing at the L4-L5 levels and bilaterally at the L5-S1 levels. Roque Machado MD Knee X-Ray 09/20/16 0000 Signed Impressions: Service Date/Time: Tuesday, September 20, 2016 12:01 - CONCLUSION: No acute disease. Roque Machado MD Objective Remarks GENERAL: This is a pleasant morbidly obese 70 yo male, well-nourished, well- developed patient, in no apparent distress. SKIN: LE chronic venous stasis dermatitis. No ecchymoses or lesions. Cool and dry. HEAD: Atraumatic. Normocephalic. No temporal or scalp tenderness. EYES: Pupils equal round and reactive. Extraocular motions intact. No scleral icterus. No injection or drainage. ENT: Nose without bleeding, purulent drainage or septal hematoma. Throat without erythema, tonsillar hypertrophy or exudate. Uvula midline. Airway patent. NECK: Trachea midline. No JVD or lymphadenopathy. Supple, nontender, no meningeal signs. CARDIOVASCULAR: Regular rate and rhythm without murmurs, gallops, or rubs. RESPIRATORY: Clear to auscultation. Breath sounds equal bilaterally. No wheezes , rales, or rhonchi. GASTROINTESTINAL: Abdomen soft, obese, non-tender, nondistended. No hepato- splenomegaly, or palpable masses. No guarding. MUSCULOSKELETAL: Extremities without clubbing, cyanosis, or edema. No calf tenderness. Negative Homans sign bilaterally. NEUROLOGICAL: Awake and alert. Cranial nerves II through XII grossly intact. Sensory grossly within normal limits. Upper extremity with normal strength. Lower extremities with weakness 4/5. Back pain. Normal speech. A/P Assessment and Plan 70-year-old male with multiple medical problems here for evaluation of bowel/ bladder incontinence and lower extremity weakness Bowel/bladder incontinence and lower extremity weakness, spinal stenosis/ radiculopathy MRI lumbar spine reviewed and findings discussed with ED physician/PA significant chronic degenerative changes with stenosis and facet hypertrophy, neuroforaminal narrowing. Consult neurosurgery Start decadron 4 mg IV q6 taper, neurosurgeon to evaluate patient Might consider neurology consultation as well Continue pain meds from home, added dilaudid for breakthrough pain Neuro checks Had a fall 3 weeks ago and complained of left knee pain. X ray without fracture. Hypokalemia. K 3.2. Give 60 mg PO KCL. Monitor and replace as need. Morbid obesity BMI 44.9. Counselled. Hyperlipidemia. Restart home meds. H/o Diffuse large B-cell lymphoma diagnosed 2007 in remission, H/o follicular lymphoma grade 3B Prostatic cancer. Biochemical relapse prostate cancer in 2016, following with Dr. Serrano as outpatient. Lower extremity ulcers, bilateral stasis dermatitis, following with Dr. Rowland podiatry. Appears stable. Consult Dr Rowland if need. Cleared by neurosurgery for DC. Patient was evaluated by 2 nurosurgeons prior and he is not a candidate for surgery as he is obese BMI 56. Patient to follow up with pain management, GI, urology neurosurgery DVt ppx SCD/TEDs Discussed Condition With Patient, nurse Tawanna Sena MD Sep 22, 2016 18:26
[2016-09-22] MEDS: TAMSULOSIN HCL 0.4 MG CAP PO SCH (21:19)
[2016-09-22] MEDS: DIAZEPAM 5 MG TAB PO SCH (21:19)
[2016-09-23] VITALS: BP 139/76; PULSE 74; RESP 26; TEMP 96.4; O2SAT 95
[2016-09-23] MEDS: ENOXAPARIN SODIUM 30 MG/0.3 ML SYRINGE SQ SCH ×2 (05:03→14:58)
[2016-09-23 05:50] VITALS: BP 132/73; PULSE 60; RESP 16; TEMP 96.7; O2SAT 97
[2016-09-23 08:00] VITALS: BP 142/68; PULSE 58; RESP 20; TEMP 95.7; O2SAT 98
[2016-09-23] MEDS ORDERED: REMOVE OLD PATCH TD SCH (09:00)
[2016-09-23 09:55] VITALS: O2SAT 95
[2016-09-23] MEDS: SODIUM CHLORIDE 0.9% FLUSH 5 ML FLUSH FLUSH SCH (09:55)
[2016-09-23] MEDS: ALLOPURINOL 300 MG TAB PO SCH (09:55)
[2016-09-23] MEDS: buPROPion HCL 100 MG TAB PO SCH (09:55)
[2016-09-23] MEDS: GABAPENTIN 300 MG CAP PO SCH ×2 (09:55→13:00)
[2016-09-23] MEDS: CHLORTHALIDONE 50 MG TAB PO SCH (09:56)
[2016-09-23] MEDS: SERTRALINE HCL 100 MG TAB PO SCH (09:56)
[2016-09-23] MEDS: MORPHINE SULFATE 60 MG CONTROLLED RELEASE TAB PO SCH (09:56)
[2016-09-23] MEDS: CHOLECALCIFEROL (VIT D3) 1000 UNIT TAB PO SCH (09:56)
[2016-09-23] MEDS: METOPROLOL SUCCINATE 25 MG EXTENDED RELEASE TAB PO SCH (09:56)
--- NOTE | 2016-09-23 11:19 | PD.CONS ---
[facility] Service Urology Consult Requested By Primary Care Physician Non-Staff Diagnosis: History of Present Illness 70-year-old male with morbid obesity presents with lower extremity weakness and bowel and bladder incontinence. Patient has a history of prostate cancer and received radiation therapy back in 2007. The patient states his current PSA is in the 6 range and is holding stable. He is followed by Dr. Serrano. His urologist is Dr. Medina. Patient states that he has had ongoing incontinence which has worsened over the last few years and now at the point where his incontinence is worsening. He has been on multiple anti-cholinergics in the past and is currently on myrobetrique. He has been scheduled undergo Botox recently but that was placed on hold. He denies any urinary tract infections or gross hematuria. He does note worsening pain due to his lumbar stenosis and radiculopathy involving L3 through L5. This radiculopathy is also probably contributing to the patient's worsening incontinence. Review of Systems Constitutional: COMPLAINS OF: Weight gain, DENIES: Diaphoretic episodes Endocrine: DENIES: Heat/cold intolerance Eyes: DENIES: Blurred vision Ears, nose, mouth, throat: DENIES: Tinnitus Respiratory: DENIES: Apneas Cardiovascular: DENIES: Chest pain Gastrointestinal: DENIES: Abdominal pain Genitourinary: COMPLAINS OF: Sexual dysfunction Musculoskeletal: COMPLAINS OF: Joint pain Integumentary: DENIES: Abnormal pigmentation Hematologic/lymphatic: DENIES: Bruising Immunologic/allergic: DENIES: Eczema Neurologic: COMPLAINS OF: Abnormal gait Past Family Social History Past Medical History Morbid obesity Prostate cancer Diabetes Nephrolithiasis Chronic low back pain B-cell lymphoma Hemorrhoids Hyperlipidemia Past Surgical History Bilateral knee surgery in the past Hip replacement Cholecystectomy Allergies: Coded Allergies: Contrast Media (Verified Allergy, Severe, 09/20/16) Renal failure Neosporin (Verified Allergy, Unknown, rash, 09/20/16) Family History CVA Social History Quit smoking 25 years ago Denies alcohol Physical Exam Vital Signs Vital Signs Date Time Temp Pulse Resp B/P Pulse Ox O2 Delivery O2 Flow Rate FiO2 09/23/16 08:00 95.7 58 20 142/68 98 09/23/16 05:50 96.7 60 16 132/73 97 09/23/16 00:31 16 09/23/16 00:00 96.4 74 26 139/76 95 09/22/16 20:00 96.8 68 24 131/78 96 09/22/16 18:52 96 21 09/22/16 16:35 96.5 74 20 137/93 96 09/22/16 12:39 97.2 61 19 116/69 98 Physical Exam GENERAL: Morbidly obese 70-year-old male, in no apparent distress. SKIN: No rashes, ecchymoses or lesions. Cool and dry. HEAD: Atraumatic. Normocephalic. No temporal or scalp tenderness. EYES: Pupils equal round and reactive. Extraocular motions intact. No scleral icterus. No injection or drainage. ENT: Nose without bleeding, purulent drainage or septal hematoma. Throat without erythema, tonsillar hypertrophy or exudate. Uvula midline. Airway patent. NECK: Trachea midline. No JVD or lymphadenopathy. Supple, nontender, no meningeal signs. CARDIOVASCULAR: Regular rate and rhythm without murmurs, gallops, or rubs. RESPIRATORY: Clear to auscultation. Breath sounds equal bilaterally. No wheezes , rales, or rhonchi. GASTROINTESTINAL: Abdomen soft, non-tender, nondistended. No hepato-splenomegaly , or palpable masses. No guarding. GENITOURINARY: Uncircumcised phallus testes are descended MUSCULOSKELETAL: Extremities without clubbing, cyanosis, or edema. No joint tenderness, effusion, or edema noted. No calf tenderness. Negative Homans sign bilaterally. NEUROLOGICAL: Awake and alert. Cranial nerves II through XII intact. Normal speech. Laboratory Date/Time Procedure Status Source Growth 09/20/16 11:35 Aerobic Blood Culture - Preliminary Resulted Blood Peripheral NO GROWTH IN 3 DAYS 09/20/16 11:35 Anaerobic Blood Culture - Preliminary Resulted Blood Peripheral NO GROWTH IN 3 DAYS Result Diagram: 09/21/1662209/21/16622 Assessment and Plan Assessment and Plan 70-year-old morbidly obese male presents with worsening lower extremity weakness with pain and radiculopathy with worsening bladder incontinence and bowel incontinence/diarrhea. Patient with history of radiation therapy for prostate cancer in the past. The combination of worsening radiculopathy and pain and history of radiation therapy to the prostate and bladder region has contributed to worsening incontinence over time. Patiently under the care of Dr. Medina and is scheduled to undergo Botox therapy for incontinence as he has failed multiple anticholinergic therapies in the past. Recommend following up with Dr. Medina upon discharge. Continue Myrobetriq for now. Recommend timed voiding every few hours to reduce accidents. Thank you for consult will allow me to participate in the care of this patient. Gerhard Gudino DO Sep 23, 2016 11:19
[2016-09-23 12:00] VITALS: BP 114/78; PULSE 67; RESP 20; TEMP 97; O2SAT 98
--- NOTE | 2016-09-23 12:55 | HHI.PR ---
Subjective Remarks Says he still has bowel and bladder ncontinence says he wants to hold on any dignishiel or french. Will add probiotic. No n/v/. He is eating well. He is at the margin of the bed, he doesn;t appear in pain. Pain is controlled by meds. Objective Vitals Vital Signs Date Time Temp Pulse Resp B/P Pulse Ox O2 Delivery O2 Flow Rate FiO2 09/23/16 10:56 15 09/23/16 09:55 95 21 09/23/16 08:00 95.7 58 20 142/68 98 09/23/16 05:50 96.7 60 16 132/73 97 09/23/16 00:31 16 09/23/16 00:00 96.4 74 26 139/76 95 09/22/16 20:00 96.8 68 24 131/78 96 09/22/16 18:52 96 21 09/22/16 16:35 96.5 74 20 137/93 96 I/O 09/22/16 09/22/16 09/22/16 09/23/16 09/23/16 09/23/16 07:00 15:00 23:00 07:00 15:00 23:00 Intake Total 240 ml Output Total 600 ml 725 ml 300 ml 150 ml Balance -600 ml -725 ml -60 ml -150 ml Intake Oral 240 ml Output Urine Total 600 ml 725 ml 300 ml 150 ml # Voids 1 # Bowel Movements 1 0 0 Result Diagram: 09/21/16 0623 09/21/16 0623 Imaging Last Impressions Chest X-Ray 09/20/16 1120 Signed Impressions: Service Date/Time: Tuesday, September 20, 2016 11:24 - CONCLUSION: 1. Cardiomegaly. 2. Elevation of the lateral left hemidiaphragm. Some degree of subpleural fluid/effusion cannot be excluded. Roque Machado MD Lumbar Spine MRI 09/20/16 0000 Signed Impressions: Service Date/Time: Tuesday, September 20, 2016 12:28 - CONCLUSION: 1. Narrowing of the thecal sac at all disc levels. Some of this may be secondary to some degree of short pedicles leaving the patient at increased risk for stenosis. There is moderate stenosis at the T12-L1, L1-L2, L2-L3 and L3-L4 levels and more mild narrowing at the L4-L5 and L5-S1 levels. 2. Facet hypertrophy at multiple levels. This does contribute to left neural foramina narrowing at the L3-L4 level and right neural foramina narrowing at the L4-L5 levels and bilaterally at the L5-S1 levels. Roque Machado MD Knee X-Ray 09/20/16 0000 Signed Impressions: Service Date/Time: Tuesday, September 20, 2016 12:01 - CONCLUSION: No acute disease. Roque Machado MD Objective Remarks GENERAL: This is a pleasant morbidly obese 70 yo male, well-nourished, well- developed patient, in no apparent distress. SKIN: LE chronic venous stasis dermatitis. No ecchymoses or lesions. Cool and dry. HEAD: Atraumatic. Normocephalic. No temporal or scalp tenderness. EYES: Pupils equal round and reactive. Extraocular motions intact. No scleral icterus. No injection or drainage. ENT: Nose without bleeding, purulent drainage or septal hematoma. Throat without erythema, tonsillar hypertrophy or exudate. Uvula midline. Airway patent. NECK: Trachea midline. No JVD or lymphadenopathy. Supple, nontender, no meningeal signs. CARDIOVASCULAR: Regular rate and rhythm without murmurs, gallops, or rubs. RESPIRATORY: Clear to auscultation. Breath sounds equal bilaterally. No wheezes , rales, or rhonchi. GASTROINTESTINAL: Abdomen soft, obese, non-tender, nondistended. No hepato- splenomegaly, or palpable masses. No guarding. MUSCULOSKELETAL: Extremities without clubbing, cyanosis, or edema. No calf tenderness. Negative Homans sign bilaterally. NEUROLOGICAL: Awake and alert. Cranial nerves II through XII grossly intact. Sensory grossly within normal limits. Upper extremity with normal strength. Lower extremities with weakness 4/5. Back pain. Normal speech. A/P Assessment and Plan 70-year-old male with multiple medical problems here for evaluation of bowel/ bladder incontinence and lower extremity weakness Bowel/bladder incontinence and lower extremity weakness, spinal stenosis/ radiculopathy MRI lumbar spine reviewed and findings discussed with ED physician/PA significant chronic degenerative changes with stenosis and facet hypertrophy, neuroforaminal narrowing. Consult neurosurgery Start decadron 4 mg IV q6 taper, neurosurgeon to evaluate patient Might consider neurology consultation as well Continue pain meds from home, added dilaudid for breakthrough pain Neuro checks Had a fall 3 weeks ago and complained of left knee pain. X ray without fracture. Hypokalemia. K 3.2. Give 60 mg PO KCL. Monitor and replace as need. Morbid obesity BMI 44.9. Counselled. Hyperlipidemia. Restart home meds. H/o Diffuse large B-cell lymphoma diagnosed 2007 in remission, H/o follicular lymphoma grade 3B Prostatic cancer. Biochemical relapse prostate cancer in 2016, following with Dr. Serrano as outpatient. Lower extremity ulcers, bilateral stasis dermatitis, following with Dr. Rowland podiatry. Appears stable. Consult Dr Rowland if need. Cleared by neurosurgery for DC. Patient was evaluated by 2 nurosurgeons prior and he is not a candidate for surgery as he is obese BMI 56. Patient to follow up with pain management, GI, urology neurosurgery DVt ppx SCD/TEDs Discussed Condition With Patient, nurse Patient improved however incontinence is likely 2/2 spinal stenosis, not a surgical candidate he was evaluated by 3 surgeons. Patient is refusing dignishild or french, says is not that much and can handle. Patient to follow up as OP with PCP and consultants. Plan to DC to SNF Tawanna Sena MD Sep 23, 2016 12:55
[2016-09-23] MEDS ORDERED: LOPE7.5C PO (12:57)
[2016-09-23] MEDS ORDERED: LACTCHW3 CHEW (12:57)
[2016-09-23] MEDS ORDERED: LACTOBACILLUS ACIDOPHILUS TAB PO SCH (13:00)
--- NOTE | 2016-09-23 14:36 | HHI.DS ---
Discharge Summary Admission Date Sep 20, 2016 at 14:31 Discharge Date: Sep 23, 2016 Admitting Diagnosis radiculopathy, lumbar spinal stenosis (1) Urinary incontinence ICD Code: R32 Diagnosis: Principal (2) Lymphedema of both lower extremities ICD Code: I89.0 Diagnosis: Principal (3) Weakness of both legs ICD Code: R29.898 Diagnosis: Principal (4) Lumbar spinal stenosis ICD Code: M48.06 Diagnosis: Principal (5) Incontinence of bowel ICD Code: R15.9 Diagnosis: Principal (6) Chronic back pain ICD Code: M54.9 Diagnosis: Secondary Procedures none Brief History - From Admission Pleasant morbidly obese 70-year-old male with BMI of 44.9 and multiple medical problems that presents to the ED for evaluation of generalized weakness and loss of bowel movement as well as bladder control the past 2 days. The patient has a history of prostate cancer many years ago as well as a history of a pinched nerve which causes pain to both legs. Per patient he is usually able to ambulate with a walker. He says for the past 2 days he has not been able to because he has weakness on both legs. he also has pain in his left leg. He has chronic wounds of the lower legs and he follows with Dr Freitas, and wounds are healed now. He states that he lost his bowel movement and urine control about 2 days ago and he just goes without even knowing. Stools have been liquidy and black. He denies any chest pain or shortness of breath. No palpitations, diaphoresis. No nausea or vomiting. No feevr or chills. Denies abdominal pain. He denies taking any blood thinners. He states that overall he feels dehydrated and weak. He denies any sick contacts. He denies ever having anything like this before. Denies any back injuries recently. No recent falls. Patient does complain of bilateral leg pain that again he attributes to his "pinched nerve". Denies any blood in the stool. States having some chills but no fevers. No abdominal pain. CBC/BMP: 09/21/1662209/21/16622 Significant Findings Laboratory Tests Test 3/13/17 06:23 Neutrophils (%) (Auto) 71.2 % (16.0-70.0) Monocytes (%) (Auto) 10.7 % (0.0-8.0) Sodium Level 135 MEQ/L (136-145) Potassium Level 3.2 MEQ/L (3.5-5.1) Chloride Level 96 MEQ/L (98-107) Imaging Last Impressions Chest X-Ray 09/20/16 1120 Signed Impressions: Service Date/Time: Tuesday, September 20, 2016 11:24 - CONCLUSION: 1. Cardiomegaly. 2. Elevation of the lateral left hemidiaphragm. Some degree of subpleural fluid/effusion cannot be excluded. Roque Machado MD Lumbar Spine MRI 09/20/16 0000 Signed Impressions: Service Date/Time: Tuesday, September 20, 2016 12:28 - CONCLUSION: 1. Narrowing of the thecal sac at all disc levels. Some of this may be secondary to some degree of short pedicles leaving the patient at increased risk for stenosis. There is moderate stenosis at the T12-L1, L1-L2, L2-L3 and L3-L4 levels and more mild narrowing at the L4-L5 and L5-S1 levels. 2. Facet hypertrophy at multiple levels. This does contribute to left neural foramina narrowing at the L3-L4 level and right neural foramina narrowing at the L4-L5 levels and bilaterally at the L5-S1 levels. Roque Machado MD Knee X-Ray 09/20/16 0000 Signed Impressions: Service Date/Time: Tuesday, September 20, 2016 12:01 - CONCLUSION: No acute disease. Roque Machado MD PE at Discharge GENERAL: This is a pleasant morbidly obese 70 yo male, well-nourished, well- developed patient, in no apparent distress. SKIN: LE chronic venous stasis dermatitis. No ecchymoses or lesions. Cool and dry. HEAD: Atraumatic. Normocephalic. No temporal or scalp tenderness. EYES: Pupils equal round and reactive. Extraocular motions intact. No scleral icterus. No injection or drainage. ENT: Nose without bleeding, purulent drainage or septal hematoma. Throat without erythema, tonsillar hypertrophy or exudate. Uvula midline. Airway patent. NECK: Trachea midline. No JVD or lymphadenopathy. Supple, nontender, no meningeal signs. CARDIOVASCULAR: Regular rate and rhythm without murmurs, gallops, or rubs. RESPIRATORY: Clear to auscultation. Breath sounds equal bilaterally. No wheezes , rales, or rhonchi. GASTROINTESTINAL: Abdomen soft, obese, non-tender, nondistended. No hepato- splenomegaly, or palpable masses. No guarding. MUSCULOSKELETAL: Extremities without clubbing, cyanosis, or edema. No calf tenderness. Negative Homans sign bilaterally. NEUROLOGICAL: Awake and alert. Cranial nerves II through XII grossly intact. Sensory grossly within normal limits. Upper extremity with normal strength. Lower extremities with weakness 4/5. Back pain. Normal speech. Hospital Course 70-year-old male with multiple medical problems here for evaluation of bowel/ bladder incontinence and lower extremity weakness Bowel/bladder incontinence and lower extremity weakness, spinal stenosis/ radiculopathy MRI lumbar spine reviewed and findings discussed with ED physician/PA significant chronic degenerative changes with stenosis and facet hypertrophy, neuroforaminal narrowing. Consult neurosurgery Start decadron 4 mg IV q6 taper, neurosurgeon to evaluate patient Might consider neurology consultation as well Continue pain meds from home, added dilaudid for breakthrough pain Neuro checks Had a fall 3 weeks ago and complained of left knee pain. X ray without fracture. Hypokalemia. K 3.2. Give 60 mg PO KCL. Monitor and replace as need. Morbid obesity BMI 44.9. Counselled. Hyperlipidemia. Restart home meds. H/o Diffuse large B-cell lymphoma diagnosed 2007 in remission, H/o follicular lymphoma grade 3B Prostatic cancer. Biochemical relapse prostate cancer in 2016, following with Dr. Serrano as outpatient. Lower extremity ulcers, bilateral stasis dermatitis, following with Dr. Rowland podiatry. Appears stable. Consult Dr Rowland if need. Cleared by neurosurgery for DC. Patient was evaluated by 2 nurosurgeons prior and he is not a candidate for surgery as he is obese BMI 56. Patient to follow up with pain management, GI, urology neurosurgery DVt ppx SCD/TEDs Discussed Condition With Patient, nurse Patient improved however incontinence is likely 2/2 spinal stenosis, not a surgical candidate he was evaluated by 3 surgeons. Patient is refusing digni- shild or french, says is not that much and can handle. He is not having diarrhea he is just incontinent bowel and urinary. Patient to follow up as OP with PCP and consultants. DC to SNF in stable condition. Pt Condition on Discharge: Stable Discharge Disposition: Discharge to SNF Discharge Time: > 30 minutes Discharge Instructions DIET: Follow Instructions for: Heart Healthy Diet Activities you can perform: Regular-No Restrictions Follow up Referrals: Gastroenterology - 1 Week Neurosurgery - 2 Weeks Pain Management - 3-5 Days PCP Follow-up - 3-5 Days Urology - 1 Week New Medications: Lactobacillus Acidophilus (Lactinex) 1 Chew 1 TAB CHEW TID Nutritional Supplement #60 Ref 0 TAB Loperamide (Imodium A-D) 2 Mg Cap 2 MG PO Q6H PRN DIARRHEA #30 Ref 0 CAP Continued Medications: Allopurinol (Allopurinol) 300 Mg Tab 300 MG PO DAILY Gout #30 Ref 0 TAB Aspirin (Aspirin) 81 Mg Tabdr 81 MG PO DAILY TAB Bupropion HCl (Bupropion HCl) 100 Mg Tab 100 MG PO BID Control Depression Ref 0 TAB Chlorthalidone (Chlorthalidone) 25 Mg Tab 25 MG PO BID Ref 0 TAB Cholecalciferol (Vitamin D-3) 1,000 Unit Tab 1000 UNITS PO DAILY #30 Ref 0 TAB Cranberry (Vaccinium Macrocarpon) (Cranberry) 500 Mg Cap Diazepam (Valium) 10 Mg Tab 10 MG PO HS PRN ANXIETY #10 Ref 0 TAB (This prescription has been renewed) Diazepam (Diazepam) 5 Mg Tab 5 MG PO HS anxiety #10 Ref 0 TAB (This prescription has been renewed) Diphenoxylate-Atropine (Lomotil) 2.5-0.025 Mg Tab 1 TAB PO Q6H PRN DIARRHEA Ref 0 TAB Fentanyl Patch 72 HR (Fentanyl Patch 72 HR) 100 Mcg/Hr Patch 100 MCG T-DERMAL Q72H Remove old patch when new one placed. Pain Management #10 Ref 0 PATCH (This prescription has been renewed) Gabapentin (Gabapentin) 300 Mg Cap 300 MG PO TID #90 Ref 0 CAP Hydrocodone-Acetaminophen (Hydrocodone-Acetaminophen) 7.5-325 mg Tab 1 TAB PO Q8HR PRN PAIN #30 Ref 0 TAB (This prescription has been renewed) Metoprolol Succinate ER 24 HR (Metoprolol Succinate ER 24 HR) 25 Mg Tab 25 MG PO DAILY #30 Ref 0 TAB Mirabegron (Myrbetriq) 50 Mg Tab 50 MG PO DAILY Urinary Symptom Managemen #30 Ref 0 TAB Morphine ER (Morphine ER) 60 Mg Tab 60 MG PO BID Pain Management #10 Ref 0 TAB (This prescription has been renewed) Multiple Vitamins-Minerals (Centrum Men) 1 Tab Tab 1 TAB PO DAILY Nutritional Supplement Ref 0 TAB [place]-3 Fatty Acids (Fish Oil) 1,000 Mg Cap Sertraline (Sertraline) 100 Mg Tab 100 MG PO DAILY #30 Ref 0 TAB Tamsulosin (Tamsulosin) 0.4 Mg Cap 0.4 MG PO HS Manage Prostate Problems #30 Ref 0 CAP Tawanna Sena MD Sep 23, 2016 14:36
[2016-09-23] MEDS: fentaNYL 100 MCG/HR PATCH T-DERMAL SCH (14:57)
[2016-09-23 16:00] VITALS: BP 149/82; PULSE 72; RESP 20; TEMP 97; O2SAT 96
[2016-11-09] MEDS ORDERED: LOMO2.5T PO (11:43)
[2016-11-19] MEDS ORDERED: LOMO2.5T PO (15:34)
== END 2016-09-23 17:09 | DRG 552 ==
LOC: NEPE 11:07 → NEDA 14:31 → N05B 16:33
PROVIDERS: ADMIT Hospitalist; ATTEND Hospitalist
DX: M48.06 Spinal stenosis, lumbar region (principal); Z68.41 Body mass index [BMI] 40.0-44.9, adult; E66.01 Morbid (severe) obesity due to excess calories; E11.9 Type 2 diabetes mellitus without complications; M48.04 Spinal stenosis, thoracic region; F11.20 Opioid dependence, uncomplicated; G89.29 Other chronic pain; E86.0 Dehydration; R15.9 Full incontinence of feces; R32 Unspecified urinary incontinence; E87.6 Hypokalemia; M54.16 Radiculopathy, lumbar region; K64.9 Unspecified hemorrhoids; R35.0 Frequency of micturition; R19.7 Diarrhea, unspecified; R39.15 Urgency of urination; Z87.891 Personal history of nicotine dependence; Z88.1 Allergy status to other antibiotic agents; Z91.041 Radiographic dye allergy status; E78.5 Hyperlipidemia, unspecified; I87.8 Other specified disorders of veins; Z91.81 History of falling; Z96.641 Presence of right artificial hip joint; Z96.651 Presence of right artificial knee joint; Z85.46 Personal history of malignant neoplasm of prostate; Z85.72 Personal history of non-Hodgkin lymphomas; Z87.442 Personal history of urinary calculi; Z92.3 Personal history of irradiation
CPT/HCPCS: 71010; 72148; 73560; 80048; 80053; 81001; 82550; 82552; 83605; 83690; 84443; 84484; 85025; 85610; 85730; 87040; 93005; 96361; 96374; J1100; J1170; J1650; J2060; J7030; P9612